=== PATIENT | female | born 1995 | race American Indian/Alaskan Native ===

== ENCOUNTER 2017-05-03 21:31 | Emergency (ER) | payer BC ==
[2017-05-03] MEDS ORDERED: PEPCID IV ONE (22:20)
--- NOTE | 2017-05-03 22:25 | Emergency Department Report ---
HPI - General Chief Complaint: Allergic Reaction Time Seen by Provider: 05/03/17 22:13 - HPI HPI: Room 3 The patient is a 22-year-old female presenting with a chief complaint allergic reaction. The patient states she has a known shellfish allergy but this afternoon (noon) ate shellfish. The patient states his evening she developed periumbilical abdominal pain began to feel hot that she began itching along her face neck and chest and noticed hives that she typically does with allergic reaction. The patient was being driven to the emergency department for evaluation when she began feeling as though her throat was tightening. Subsequently patient pulled over and EMS was called. EMS arrived and administered Benadryl and presented the patient to the ED. The patient now she just feels "shaky" and drowsy from the Benadryl. Patient denies throat tightening currently Location: [See above] Duration: Just prior to arrival Quality: Itching, tightening Severity: Moderate Modifying factors: [see above] Context: [see above] Mode of transportation: [not driving] ED Past Medical Hx - Past Medical History Previous Medical History?: Yes Additional medical history: anaphylaxis (no hx of intubation) - Surgical History Past Surgical History?: No - Family History Family history: no significant - Social History Smoking Status: Never Smoker Substance Use Type: None (denies illicit drug use) - Medications Home Medications: Home Medications Medication Instructions Recorded Confirmed Last Taken Type EPINEPHrine [Epipen] 0.3 mg IM ONCE PRN #1 auto.injct 05/03/17 Unknown Rx Famotidine [Pepcid] 20 mg PO BID #6 tablet 05/03/17 Unknown Rx Prednisone [predniSONE 10 mg 10 mg PO .TAPER #1 tab.ds.pk 05/03/17 Unknown Rx (6-Day Pack, 21 Tabs)] diphenhydrAMINE [Benadryl CAP] 50 mg PO Q6HR #24 capsule 05/03/17 Unknown Rx ED Review of Systems ROS: Stated complaint: ALLERGIC REACTION Other details as noted in HPI ENT: throat pain (throat tightening) Gastrointestinal: abdominal pain, nausea Skin: lesions, pruritus Physical Exam - Physical Exam Vital Signs: Vital Signs 05/03/17 22:12 Temperature 98.0 F Pulse Rate 80 Respiratory 16 Rate Blood Pressure 131/77 O2 Sat by Pulse 97 Oximetry Physical Exam: GENERAL: The patient is well-developed well-nourished female lying on stretcher not appearing to be in acute distress. [] HEENT: Normocephalic. Atraumatic. Extraocular motions are intact. Patient has moist mucous membranes. Oropharynx clear NECK: Supple. No meningitic signs are noted. There is no adenopathy noted. Trachea midline. No stridor CHEST/LUNGS: Clear to auscultation. There is no respiratory distress noted. HEART/CARDIOVASCULAR: Regular. There is no tachycardia. There is no gallop rub or murmur. ABDOMEN: Abdomen is soft, with mild discomfort to palpation in the right upper quadrant and left lower quadrant. Patient has normal bowel sounds. There is no abdominal distention. SKIN: There is no rash. There is no edema. There is no diaphoresis. NEURO: The patient is awake, alert, and oriented. The patient is cooperative. The patient has normal speech MUSCULOSKELETAL: There is no evidence of acute injury. ED Course Vital Signs 05/03/17 22:12 Temperature 98.0 F Pulse Rate 80 Respiratory 16 Rate Blood Pressure 131/77 O2 Sat by Pulse 97 Oximetry - Reevaluation(s) Reevaluation #1: 05/03/17 23:36 Patient resting comfortably. Patient asymptomatic ED Medical Decision Making - Lab Data Result diagrams: 05/03/17 22:40 05/03/17 22:40 - Differential Diagnosis acute allergic reaction Critical care attestation.: If time is entered above; I have spent that time in minutes in the direct care of this critically ill patient, excluding procedure time. ED Disposition Clinical Impression: Acute allergic reaction Disposition: DC-01 TO HOME OR SELFCARE Is pt being admited?: No Does the pt Need Aspirin: No Condition: Stable Instructions: Urticaria (ED), Food Allergy (ED) Additional Instructions: Return to the emergency department immediately should you develop worsening symptoms, fever, inability to tolerate food or liquid or any other concerns. Prescriptions: diphenhydrAMINE [Benadryl CAP] 50 mg PO Q6HR #24 capsule EPINEPHrine [Epipen] 0.3 mg IM ONCE PRN #1 auto.injct PRN Reason: Shortness Of Breath Famotidine [Pepcid] 20 mg PO BID #6 tablet Prednisone [predniSONE 10 mg (6-Day Pack, 21 Tabs)] 10 mg PO .TAPER #1 tab.ds.pk Referrals: DONALD RYAN JR, MD [Staff Physician] - 3-5 Days DARWIN HENDRIX MD [Staff Physician] - 3-5 Days (Dr. Hendrix is a an director of community life. Please follow-up with her for further evaluation) Time of Disposition: 23:37
[2017-05-03 23:11] LABS: Basophils # (Auto) 0.1 K/mm3 (0.0-0.1); Basophils % (Auto) 0.7 % (0.0-1.8); Eosinophils % (Auto) 0.4 % (0.0-4.3); Hematocrit 41.5 % (30.3-42.9); Hemoglobin 14.3 gm/dl (10.1-14.3); Lymphocytes # (Auto) 1.5 K/mm3 (1.2-5.4); Mean Corpuscular HGB Conc 35 % (30-34); Mean Corpuscular Hemoglobin 29 pg (28-32); Mean Corpuscular Volume 84 fl (79-97); Monocytes # (Auto) 0.5 K/mm3 (0.0-0.8); Monocytes % (Auto) 6.2 % (0.0-7.3); Platelet Count 317 K/mm3 (140-440); Red Blood Count 4.96 M/mm3 (3.65-5.03); Red Cell Distribution Width 13.5 % (13.2-15.2)
[2017-05-03 23:26] LABS: Alanine Aminotransferase 16 units/L (7-56); Albumin 3.3 g/dL (3.9-5); BUN/Creatinine Ratio 8; Blood Urea Nitrogen 7 mg/dL (7-17); Calcium 8.6 mg/dL (8.4-10.2); Hemolysis Index 1; Lipase 18 units/L (13-60)
[2017-05-04 00:28] VITALS: BP 119/86
== END 2017-05-04 00:15 | disposition home or self-care (01) ==
LOC: ED 21:31
DX: T78.40XA Allergy, unspecified, initial encounter (principal); Z91.013 Allergy to seafood; Z91.010 Allergy to peanuts
CPT/HCPCS: 36415; 80053; 83690; 84703; 85025; 96374; 96375; 99284; J2930